=== PATIENT | female | born 1965 | race Two or more races ===

== ENCOUNTER 2022-07-12 06:35 | Day surgery (SDC) | payer MEDICAID ==
[2022-07-12] VITALS (7 sets, daily range): BP systolic 121–133; BP diastolic 6–71
[~2022-07-12] VITALS: Ht 157.5 cm; Wt 69.4 kg
[~2022-07-12 06:35] MED LIST: ASPI-543 PO; FURO20TA3 PO; IBUP800T27 PO; LISI-716 PO; PANT40T PO; ROSU20TA14 PO
[2022-07-12] MEDS ORDERED: IODIXANOL 320MG/ML 100ML BTL IV ONE (07:20)
[2022-07-12] MEDS ORDERED: HEPARIN SODIUM (PORCINE) 5000 UNITS/ML 1ML VIAL ONE (07:55)
[2022-07-12] MEDS ORDERED: fentaNYL CITRATE 100 MCG/2 ML VL ONE (07:55)
[2022-07-12] MEDS ORDERED: VERAPAMIL 2.5MG/ML INJ 2ML VIAL IV ONE (07:55)
[2022-07-12] MEDS ORDERED: ANGIOMAX 250 MG VIAL IV ONE (07:55)
[2022-07-12] MEDS ORDERED: LIDOCAINE 2%HCL (LOCAL ANESTH.) INJ 10ml MDV ONE (07:56)
[2022-07-12] MEDS ORDERED: MIDAZOLAM HCL 2MG/2ML 2ml VIAL (1mg/ml) ONE (07:56)
[2022-07-12] MEDS ORDERED: SODIUM CHL 0.9% 0 ML ONE (07:56)
== END 2022-07-12 10:55 | disposition home or self-care (01) ==
LOC: CATH 06:35
PROVIDERS: ATTEND Internal Medicine Cardiovascular Disease
DX: I25.10 Atherosclerotic heart disease of native coronary artery without angina pectoris (principal); R94.39 Abnormal result of other cardiovascular function study; I10 Essential (primary) hypertension; R73.03 Prediabetes; I45.10 Unspecified right bundle-branch block; Z79.899 Other long term (current) drug therapy; Z20.822 Contact with and (suspected) exposure to COVID-19
CPT/HCPCS: 93458; C1769; C1887; C1894; J1644; J2001; J2250; J3010; Q9967; U0003; 99152

== ENCOUNTER → 2023-06-18 | Outpatient (CLI) | payer OTHER ==
[~2023-06-18] MED LIST changes: +IBUP-1456 PO; -IBUP800T27 PO; -LISI-716 PO; +LISI10TA34 PO
[2023-06-18 09:04] LABS: Basophils # (auto) 0 10 ^3/uL (0-0.2); Basophils % (auto) 0.8 % (0.0-2.0); Eosinophils # (auto) 0.1 10 ^3/uL (0-0.8); Eosinophils % (auto) 1.4 % (0.0-7.0); Hematocrit 42.2 % (36.0-46.0); Hemoglobin 14.4 g/dL (12.2-16.2); Lymphocytes % (auto) 35.5 % (10.0-50.0); Mean Corpuscular Hemoglobin 30.7 pg (28.0-32.0); Mean Corpuscular Hgb Conc. 34.2 g/dL (32.0-36.0); Mean Corpuscular Volume 89.8 fL (80.0-100.0); Monocytes # (auto) 0.4 10 ^3/uL (0-1.3); Monocytes % (auto) 7.5 % (0.0-12.0); Neutrophils # (auto) 3.2 10 ^3/uL (1.6-8.6); Neutrophils % (auto) 54.8 % (37.0-80.0); Nucleated Red Blood Cells % 0.1 %; Red Cell Distribution Width 12.8 % (11.8-14.3); White Blood Cell 5.8 10^3/uL (4.4-10.8)
[2023-06-18 09:13] LABS: Urine Bacteria NONE SEEN /hpf (None Seen); Urine Blood Negative /uL (Negative); Urine Clarity HAZY (Clear); Urine Protein, UAD Negative (Negative); Urine Specific Gravity 1.017 (1.001-1.035); Urine Urobilinogen Normal (Negative); Urine WBC 1 /hpf (0 - 5)
[2023-06-18 09:15] LABS: Urine Color Straw (Yellow)
[2023-06-18 09:26] LABS: Alanine Aminotransferase 43 U/L (7-40); Albumin 4.4 g/dL (3.2-4.8); Alkaline Phosphatase 126 U/L (46-116); Anion Gap 6 (5-15); Aspartate Aminotransferase 21 U/L (13-40); BUN/Creatinine Ratio 15.9 (10.0-20.0); Blood Urea Nitrogen 11 mg/dL (9-23); Calcium 9.6 mg/dL (8.5-10.1); Carbon Dioxide 28 mmol/L (20-30); Chloride 107 mmol/L (98-107); Cholesterol 196 mg/dL (< 200); Glucose 96 mg/dL (74-106); LDL Cholesterol 140 mg/dL (< 100); Sodium 141 mmol/L (136-145); Triglycerides 177 mg/dL (< 150)
[2023-06-18 09:27] LABS: Bilirubin, Total 0.8 mg/dL (0.2-1.0); HDL Cholesterol 50 mg/dL (40-59); Total Protein 7.2 g/dL (5.7-8.2)
[2023-06-18 09:31] LABS: Folate (Folic Acid) 16.7 ng/mL (>5.38)
[2023-06-18 09:57] LABS: Uric Acid 5.8 mg/dL (3.1-7.8)
== END | disposition home or self-care (01) ==
LOC: LAB 08:19
PROVIDERS: ATTEND Internal Medicine
DX: E61.2 Magnesium deficiency (principal); R78.89 Finding of other specified substances, not normally found in blood; R68.89 Other general symptoms and signs; E78.41 Elevated Lipoprotein(a); R94.6 Abnormal results of thyroid function studies; E79.0 Hyperuricemia without signs of inflammatory arthritis and tophaceous disease; E85.9 Amyloidosis, unspecified; R82.991 Hypocitraturia; R82.90 Unspecified abnormal findings in urine; R82.79 Other abnormal findings on microbiological examination of urine; D51.9 Vitamin B12 deficiency anemia, unspecified
CPT/HCPCS: 36415; 80053; 80061; 81001; 82306; 82607; 82746; 83036; 83735; 84443; 84550; 85025; 87086

== ENCOUNTER → 2023-09-19 | Outpatient (CLI) | payer OTHER ==
[2023-09-19 10:11] LABS: Basophils # (auto) 0.1 10 ^3/uL (0-0.2); Eosinophils # (auto) 0.1 10 ^3/uL (0-0.8); Eosinophils % (auto) 1.6 % (0.0-7.0); Hematocrit 43.8 % (36.0-46.0); Lymphocytes # (auto) 2.1 10 ^3/uL (0.4-5.4); Lymphocytes % (auto) 31.7 % (10.0-50.0); Mean Corpuscular Hemoglobin 30.7 pg (28.0-32.0); Mean Corpuscular Hgb Conc. 34.2 g/dL (32.0-36.0); Mean Corpuscular Volume 89.7 fL (80.0-100.0); Monocytes # (auto) 0.4 10 ^3/uL (0-1.3); Monocytes % (auto) 6.6 % (0.0-12.0); Neutrophils # (auto) 3.9 10 ^3/uL (1.6-8.6); Neutrophils % (auto) 59.1 % (37.0-80.0); Red Blood Cells 4.89 10^6/uL (4.0-5.20); Red Cell Distribution Width 13.2 % (11.8-14.3); White Blood Cell 6.6 10^3/uL (4.4-10.8)
[2023-09-19 10:31] LABS: Urine Bacteria FEW /hpf (None Seen); Urine Blood 1+ /uL (Negative); Urine Clarity Clear (Clear); Urine Color Straw (Yellow); Urine Mucus FEW (None Seen); Urine Protein, UAD Negative (Negative); Urine Specific Gravity 1.018 (1.001-1.035); Urine Urobilinogen Normal (Negative); Urine WBC 1 /hpf (0 - 5); Urine pH 6.5 (5.0-8.0)
[2023-09-19 10:47] LABS: Erythrocyte Sedimentation Rate 8 mm/hr (0-20)
[2023-09-19 10:54] LABS: Alanine Aminotransferase 45 U/L (7-40); Albumin 4.6 g/dL (3.2-4.8); Alkaline Phosphatase 144 U/L (46-116); Anion Gap 7 (5-15); Aspartate Aminotransferase 23 U/L (13-40); BUN/Creatinine Ratio 17.2 (10.0-20.0); Blood Urea Nitrogen 10 mg/dL (9-23); Calcium 9.8 mg/dL (8.5-10.1); Carbon Dioxide 28 mmol/L (20-30); Chloride 106 mmol/L (98-107); Cholesterol 200 mg/dL (< 200); Glucose 98 mg/dL (74-106); HDL Cholesterol 49 mg/dL (40-59); LDL Cholesterol 139 mg/dL (< 100); Potassium 3.9 mmol/L (3.5-5.1); Sodium 141 mmol/L (136-145); Triglycerides 163 mg/dL (< 150)
[2023-09-19 10:55] LABS: Folate (Folic Acid) 21.16 ng/mL (>5.38); Total Protein 7.2 g/dL (5.7-8.2)
[2023-09-19 11:31] LABS: Uric Acid 4.2 mg/dL (3.1-7.8)
[2023-09-20 08:06] LABS: Rheumatoid Arthritis Factor <10.0 IU/mL (<14.0)
[2023-09-20 09:06] LABS: Anti-Nuclear Antibody Direct Negative (Negative)
== END | disposition home or self-care (01) ==
LOC: LAB 09:37
PROVIDERS: ATTEND Internal Medicine
DX: E61.2 Magnesium deficiency (principal); E79.0 Hyperuricemia without signs of inflammatory arthritis and tophaceous disease; R82.998 Other abnormal findings in urine; R94.6 Abnormal results of thyroid function studies; E55.9 Vitamin D deficiency, unspecified; D51.9 Vitamin B12 deficiency anemia, unspecified; R82.79 Other abnormal findings on microbiological examination of urine; R78.89 Finding of other specified substances, not normally found in blood; E78.49 Other hyperlipidemia; R68.89 Other general symptoms and signs; R73.09 Other abnormal glucose
CPT/HCPCS: 36415; 80053; 80061; 81001; 82306; 82607; 82746; 83036; 83735; 84443; 84550; 85025; 85652; 86038; 86431; 87086

== ENCOUNTER → 2023-11-24 | Outpatient (CLI) | payer OTHER ==
[2023-11-24 08:56] LABS: Basophils # (auto) 0 10 ^3/uL (0-0.2); Basophils % (auto) 0.6 % (0.0-2.0); Eosinophils # (auto) 0.2 10 ^3/uL (0-0.8); Eosinophils % (auto) 3.1 % (0.0-7.0); Hematocrit 44.1 % (36.0-46.0); Hemoglobin 14.7 g/dL (12.2-16.2); Lymphocytes # (auto) 1.9 10 ^3/uL (0.4-5.4); Lymphocytes % (auto) 34.5 % (10.0-50.0); Mean Corpuscular Hgb Conc. 33.3 g/dL (32.0-36.0); Mean Corpuscular Volume 90.2 fL (80.0-100.0); Monocytes # (auto) 0.5 10 ^3/uL (0-1.3); Monocytes % (auto) 9.2 % (0.0-12.0); Neutrophils # (auto) 2.9 10 ^3/uL (1.6-8.6); Neutrophils % (auto) 52.6 % (37.0-80.0); Red Blood Cells 4.89 10^6/uL (4.0-5.20); Red Cell Distribution Width 12.5 % (11.8-14.3); White Blood Cell 5.6 10^3/uL (4.4-10.8)
[2023-11-24 09:32] LABS: Erythrocyte Sedimentation Rate 10 mm/hr (0-20)
[2023-11-24 10:17] LABS: Alanine Aminotransferase 41 U/L (7-40); Albumin 4.5 g/dL (3.2-4.8); Alkaline Phosphatase 149 U/L (46-116); Anion Gap 9 (5-15); Aspartate Aminotransferase 27 U/L (13-40); BUN/Creatinine Ratio 17.1 (10.0-20.0); Bilirubin, Total 0.8 mg/dL (0.2-1.0); Blood Urea Nitrogen 12 mg/dL (9-23); CRP High Sensitivity 0.41 mg/dL (<1.0); Calcium 9.8 mg/dL (8.5-10.1); Carbon Dioxide 26 mmol/L (20-30); Chloride 106 mmol/L (98-107); Glucose 101 mg/dL (74-106); Potassium 3.9 mmol/L (3.5-5.1); Sodium 141 mmol/L (136-145); Total Protein 7.2 g/dL (5.7-8.2)
== END | disposition home or self-care (01) ==
LOC: LAB 08:33
PROVIDERS: ATTEND Internal Medicine Rheumatology
DX: Z11.1 Encounter for screening for respiratory tuberculosis (principal); M32.10 Systemic lupus erythematosus, organ or system involvement unspecified; L40.50 Arthropathic psoriasis, unspecified
CPT/HCPCS: 36415; 80053; 85025; 85652; 86141

== ENCOUNTER → 2024-01-13 | Outpatient (CLI) | payer OTHER ==
[2024-01-13 09:02] LABS: Urine Bacteria None Seen /hpf (None Seen)
[2024-01-13 09:12] LABS: Urine Blood Negative /uL (Negative); Urine Clarity Clear (Clear); Urine Color Light-Yellow (Yellow); Urine Mucus FEW (None Seen); Urine Protein, UAD Negative (Negative); Urine Specific Gravity 1.018 (1.001-1.035); Urine Urobilinogen Normal (Negative); Urine WBC 1 /hpf (0 - 5); Urine pH 6.5 (5.0-9.0)
[2024-01-13 09:40] LABS: Alanine Aminotransferase 41 U/L (7-40); Albumin 4.4 g/dL (3.2-4.8); Alkaline Phosphatase 146 U/L (46-116); Anion Gap 5 (5-15); Aspartate Aminotransferase 21 U/L (13-40); BUN/Creatinine Ratio 12.7 (10.0-20.0); Blood Urea Nitrogen 9 mg/dL (9-23); Calcium 9.7 mg/dL (8.5-10.1); Carbon Dioxide 28 mmol/L (20-30); Chloride 108 mmol/L (98-107); Glucose 105 mg/dL (74-106); LDL Cholesterol 85 mg/dL (< 100); Magnesium 1.9 mg/dL (1.6-2.6); Potassium 3.8 mmol/L (3.5-5.1); Sodium 141 mmol/L (136-145); Triglycerides 108 mg/dL (< 150)
[2024-01-13 09:41] LABS: Bilirubin, Total 0.8 mg/dL (0.2-1.0); Cholesterol 144 mg/dL (< 200); HDL Cholesterol 46 mg/dL (40-59)
== END | disposition home or self-care (01) ==
LOC: LAB 08:53
PROVIDERS: ATTEND Internal Medicine
DX: E78.2 Mixed hyperlipidemia (principal); E55.9 Vitamin D deficiency, unspecified; M79.7 Fibromyalgia; Z68.28 Body mass index [BMI] 28.0-28.9, adult
CPT/HCPCS: 36415; 80053; 80061; 81001; 82306; 82746; 83036; 83735; 84443; 84550; 87086

== ENCOUNTER → 2024-04-21 | Outpatient (CLI) | payer OTHER ==
[2024-04-21 08:29] LABS: Urine Bacteria None Seen /hpf (None Seen)
[2024-04-21 08:48] LABS: Basophils # (auto) 0.1 10 ^3/uL (0-0.2); Eosinophils # (auto) 0.1 10 ^3/uL (0-0.8); Eosinophils % (auto) 2.4 % (0.0-7.0); Hematocrit 42.4 % (36.0-46.0); Hemoglobin 14.4 g/dL (12.2-16.2); Lymphocytes # (auto) 1.7 10 ^3/uL (0.4-5.4); Lymphocytes % (auto) 31.4 % (10.0-50.0); Mean Corpuscular Hemoglobin 30.2 pg (28.0-32.0); Mean Corpuscular Hgb Conc. 33.9 g/dL (32.0-36.0); Monocytes # (auto) 0.5 10 ^3/uL (0-1.3); Monocytes % (auto) 9.4 % (0.0-12.0); Neutrophils % (auto) 55.8 % (37.0-80.0); Nucleated Red Blood Cells % 0.1 %; Platelet Count (auto) 147 10^3/uL (140-450); Red Blood Cells 4.76 10^6/uL (4.0-5.20); Red Cell Distribution Width 13.3 % (11.8-14.3); White Blood Cell 5.3 10^3/uL (4.4-10.8)
[2024-04-21 08:53] LABS: Urine Blood Negative /uL (Negative); Urine Clarity Clear (Clear); Urine Color Light-Yellow (Yellow); Urine Mucus FEW (None Seen); Urine Protein, UAD Negative (Negative); Urine Specific Gravity 1.027 (1.001-1.035); Urine Urobilinogen Normal (Negative); Urine WBC <1 /hpf (0 - 5); Urine pH 6.5 (5.0-9.0)
[2024-04-21 09:31] LABS: Alanine Aminotransferase 50 U/L (7-40); Alkaline Phosphatase 127 U/L (46-116); Anion Gap 5 (5-15); BUN/Creatinine Ratio 17.7 (10.0-20.0); Blood Urea Nitrogen 14 mg/dL (9-23); Carbon Dioxide 29 mmol/L (20-30); Chloride 107 mmol/L (98-107); Glucose 97 mg/dL (74-106); LDL Cholesterol 73 mg/dL (< 100); Potassium 4.5 mmol/L (3.5-5.1); Sodium 141 mmol/L (136-145); Triglycerides 139 mg/dL (< 150)
[2024-04-21 09:32] LABS: Albumin 4.4 g/dL (3.2-4.8); Aspartate Aminotransferase 22 U/L (13-40); Cholesterol 137 mg/dL (< 200); HDL Cholesterol 44 mg/dL (40-59)
[2024-04-21 10:17] LABS: Folate (Folic Acid) 22.4 ng/mL (>5.38)
== END | disposition home or self-care (01) ==
LOC: LAB 08:19
PROVIDERS: ATTEND Internal Medicine
DX: I10 Essential (primary) hypertension (principal); E78.2 Mixed hyperlipidemia; E55.9 Vitamin D deficiency, unspecified
CPT/HCPCS: 36415; 80053; 80061; 81001; 82306; 82607; 82746; 83036; 83735; 84443; 84550; 85025; 87086

== ENCOUNTER 2024-04-29 16:55 | Inpatient (IN) | payer OTHER ==
[~2024-04-29] VITALS: Ht 157.5 cm; Wt 71.4 kg
[2024-04-29 18:01] LABS: Basophils # (auto) 0 10 ^3/uL (0-0.2); Basophils % (auto) 0.2 % (0.0-2.0); Eosinophils # (auto) 0 10 ^3/uL (0-0.8); Eosinophils % (auto) 0.1 % (0.0-7.0); Hematocrit 43.7 % (36.0-46.0); Hemoglobin 14.8 g/dL (12.2-16.2); Lymphocytes # (auto) 1.4 10 ^3/uL (0.4-5.4); Mean Corpuscular Hemoglobin 30.4 pg (28.0-32.0); Mean Corpuscular Volume 89.4 fL (80.0-100.0); Monocytes # (auto) 0.9 10 ^3/uL (0-1.3); Monocytes % (auto) 5.2 % (0.0-12.0); Neutrophils # (auto) 15.3 10 ^3/uL (1.6-8.6); Neutrophils % (auto) 86.5 % (37.0-80.0); Platelet Count (auto) 141 10^3/uL (140-450); Red Blood Cells 4.88 10^6/uL (4.0-5.20); Red Cell Distribution Width 13.7 % (11.8-14.3); White Blood Cell 17.7 10^3/uL (4.4-10.8)
[2024-04-29 18:14] LABS: Alanine Aminotransferase 50 U/L (7-40); Albumin 4.5 g/dL (3.2-4.8); Alkaline Phosphatase 118 U/L (46-116); Anion Gap 10 (5-15); Aspartate Aminotransferase 28 U/L (13-40); BUN/Creatinine Ratio 22.2 (10.0-20.0); Bilirubin, Total 1.3 mg/dL (0.2-1.0); Blood Urea Nitrogen 18 mg/dL (9-23); Calcium 10.2 mg/dL (8.7-10.4); Carbon Dioxide 24 mmol/L (20-31); Chloride 111 mmol/L (98-107); Glucose 120 mg/dL (74-106); Magnesium 1.9 mg/dL (1.6-2.6); Potassium 3.6 mmol/L (3.5-5.1); Sodium 145 mmol/L (136-145); Total Protein 6.9 g/dL (5.7-8.2)
[2024-04-29 20:07] LABS: Erythrocyte Sedimentation Rate 8 mm/hr (0-20)
[2024-04-29 20:48] LABS: Urine Bacteria None Seen /hpf (None Seen)
[2024-04-29 21:05] VITALS: PULSE 110; RESP 18; O2SAT 98
[2024-04-29] MEDS: methylPREDNISolone SOD SUCC 125 MG/2 ML VL IV ONE (21:22)
[2024-04-29] MEDS: IBUPROFEN 800 MG TAB PO ONE (21:25)
[2024-04-29 21:32] LABS: Urine Amorphous Crystal FEW /hpf (None Seen); Urine Blood Negative /uL (Negative); Urine Clarity Turbid (Clear); Urine Color Yellow (Yellow); Urine Mucus FEW (None Seen); Urine Protein, UAD 1+ (Negative); Urine Urobilinogen Normal (Negative); Urine WBC 5 /hpf (0 - 5); Urine pH 5.5 (5.0-9.0)
[2024-04-29 22:11] LABS: COVID19 ANTIGEN SOFIA FIA NEGATIVE (NEGATIVE); Rapid Influenza A Negative (Negative); Rapid Influenza B Negative (Negative)
[2024-04-29] MEDS ORDERED: MORPHINE SULFATE INJ 2 MG/ml SYRG IV PRN (23:00)
[2024-04-29] MEDS ORDERED: ACETAMINOPHEN 500 MG TAB PO PRN (23:00)
[2024-04-29] MEDS ORDERED: NITROGLYCERIN 0.4 MG SL TAB SL PRN (23:00)
[2024-04-29 23:18] LABS: Amphetamine Screen, Urine Neg (NEGATIVE); Barbiturate Scree,Urine Neg (NEGATIVE); Benzodiazephine Screen, Urine Neg (NEGATIVE); Cannabinoid Screen, Urine Neg (NEGATIVE); Cocaine Screen, Urine Neg (NEGATIVE); Opiate Scree,Urine Neg (NEGATIVE); Phencyclidine Screen, Urine Neg (NEGATIVE)
[2024-04-29 23:22] LABS: INR 1.11 (0.9-1.15); Partial Thromboplastin Time 27.3 SEC (24.5-34.5); Prothrombin Time 11.7 sec (9.3-11.8)
[2024-04-29] MEDS: MORPHINE SULFATE INJ 2 MG/ml SYRG IM ONE (23:43)
[2024-04-29 23:45] VITALS: PULSE 85; RESP 18; O2SAT 94
[2024-04-30] MEDS: LISINOPRIL 20 MG TAB PO ONE (00:15)
[2024-04-30] MEDS: ATORVASTATIN 20 MG TAB PO ONE ×2 (00:18→04:45)
[2024-04-30] MEDS: ASPirin-EC 81 mg tab PO ONE (00:18)
[2024-04-30] MEDS ORDERED: hydrALAZINE HCL 20 MG/ML VL IV PRN (02:45)
[2024-04-30] MEDS: PANTOPRAZOLE 40 MG/10 ML VIAL INJ IV ONE (02:59)
[2024-04-30 03:38] LABS: Anion Gap 7 (5-15); Carbon Dioxide 23 mmol/L (20-31); Chloride 110 mmol/L (98-107); Potassium 3.6 mmol/L (3.5-5.1); Sodium 140 mmol/L (136-145)
[2024-04-30 03:39] LABS: Calcium 10.1 mg/dL (8.7-10.4)
[2024-04-30 03:44] LABS: BUN/Creatinine Ratio 19.4 (10.0-20.0); Blood Urea Nitrogen 14 mg/dL (9-23); Glucose 150 mg/dL (74-106)
[2024-04-30 03:54] LABS: Basophils # (auto) 0 10 ^3/uL (0-0.2); Basophils % (auto) 0.1 % (0.0-2.0); Eosinophils # (auto) 0 10 ^3/uL (0-0.8); Hematocrit 40.3 % (36.0-46.0); Hemoglobin 13.6 g/dL (12.2-16.2); Lymphocytes # (auto) 0.7 10 ^3/uL (0.4-5.4); Lymphocytes % (auto) 5.3 % (10.0-50.0); Mean Corpuscular Hemoglobin 30.1 pg (28.0-32.0); Mean Corpuscular Hgb Conc. 33.7 g/dL (32.0-36.0); Mean Corpuscular Volume 89.2 fL (80.0-100.0); Monocytes # (auto) 0.1 10 ^3/uL (0-1.3); Monocytes % (auto) 1.1 % (0.0-12.0); Neutrophils # (auto) 12.1 10 ^3/uL (1.6-8.6); Neutrophils % (auto) 93.5 % (37.0-80.0); Platelet Count (auto) 133 10^3/uL (140-450); Red Blood Cells 4.52 10^6/uL (4.0-5.20); Red Cell Distribution Width 13.3 % (11.8-14.3)
[2024-04-30 07:45] VITALS: PULSE 90; RESP 16; O2SAT 97
[2024-04-30] MEDS: MORPHINE SULFATE INJ 2 MG/ml SYRG IV PRN (07:49)
[2024-04-30] MEDS ORDERED: VANCOMYCIN PER PHARMACY 0 MG IV SCH (08:15)
[2024-04-30] MEDS: cefTRIAXone 2GM/50ML D5W 50 ML IV SCH (08:54)
[2024-04-30] MEDS: ENOXAPARIN SOD 40 MG/0.4 ML SYRINGE SC SCH (10:00)
[2024-04-30] MEDS: VANCOMYCIN 750mg/150ml 150 ML IV SCH (10:13)
[2024-04-30] MEDS: ASPirin-EC 81 mg tab PO SCH (10:32)
[2024-04-30] MEDS: LISINOPRIL 20 MG TAB PO SCH (10:34)
[2024-04-30] MEDS: DOXYCYCLINE 100MG/250ML 250 ML IV ONE (14:45)
[2024-04-30 15:17] LABS: CRP High Sensitivity 11.16 mg/dL (<1.0)
[2024-04-30] MEDS ORDERED: LISI20TA56 PO (15:37)
[2024-04-30] MEDS ORDERED: ATOR10TA52 PO (15:37)
[2024-04-30] MEDS ORDERED: METO10TA3 PO (15:37)
[2024-04-30] MEDS ORDERED: PROP1TAB51 PO (15:37)
[2024-04-30] MEDS ORDERED: LEFL10TA17 PO (15:37)
[2024-04-30] MEDS ORDERED: ERGO500086 PO (15:37)
[2024-04-30] MEDS ORDERED: GABA-1250 PO (15:37)
[2024-04-30 16:57] VITALS: BP 146/74; PULSE 68; RESP 16; TEMP 97.8; O2SAT 98
[2024-04-30 19:30] VITALS: PULSE 75; RESP 19; O2SAT 96
[2024-04-30 21:00] VITALS: BP 134/61; PULSE 72; RESP 18; TEMP 97.6; O2SAT 97
[2024-04-30] MEDS: VANCOMYCIN 1GM/200ML 200 ML IV SCH (21:23)
[2024-04-30] MEDS ORDERED: ATORVASTATIN 20 MG TAB PO SCH (22:00)
[2024-05-01] VITALS (9 sets, daily range): BP systolic 120–150; BP diastolic 55–73; PULSE 65–76; RESP 18–20; TEMP 97.6–97.9; O2SAT 96–98
[2024-05-01 07:01] LABS: Basophils # (auto) 0 10 ^3/uL (0-0.2); Basophils % (auto) 0.4 % (0.0-2.0); Eosinophils # (auto) 0 10 ^3/uL (0-0.8); Eosinophils % (auto) 0.2 % (0.0-7.0); Hematocrit 39.9 % (36.0-46.0); Hemoglobin 13.5 g/dL (12.2-16.2); Lymphocytes # (auto) 2.6 10 ^3/uL (0.4-5.4); Lymphocytes % (auto) 19.2 % (10.0-50.0); Mean Corpuscular Hemoglobin 30.5 pg (28.0-32.0); Mean Corpuscular Hgb Conc. 33.9 g/dL (32.0-36.0); Mean Corpuscular Volume 90.1 fL (80.0-100.0); Monocytes # (auto) 0.8 10 ^3/uL (0-1.3); Monocytes % (auto) 6.3 % (0.0-12.0); Neutrophils % (auto) 73.9 % (37.0-80.0); Platelet Count (auto) 126 10^3/uL (140-450); Red Blood Cells 4.43 10^6/uL (4.0-5.20); Red Cell Distribution Width 13.3 % (11.8-14.3); White Blood Cell 13.5 10^3/uL (4.4-10.8)
[2024-05-01] MEDS: ACETAMINOPHEN 500 MG TAB PO PRN (09:59)
[2024-05-01] MEDS: PANTOPRAZOLE 40 MG/10 ML VIAL INJ IV SCH (09:59)
[2024-05-01] MEDS: HYDROcodone-ACET 5/325MG TAB PO PRN (13:39)
[2024-05-01] MEDS: diphenhdrAMINE HCL 50 MG/1 ML VL IV ONE (15:01)
[2024-05-01] MEDS ORDERED: ATORVASTATIN 20 MG TAB PO SCH (22:00)
[2024-05-01] MEDS: GABAPENTIN 100 MG CAP PO SCH (22:00)
[2024-05-02] VITALS (8 sets, daily range): BP systolic 141–156; BP diastolic 75–100; PULSE 67–82; RESP 19–20; TEMP 97.6–98.6; O2SAT 96–98
[2024-05-02 06:22] LABS: Basophils # (auto) 0 10 ^3/uL (0-0.2); Basophils % (auto) 0.7 % (0.0-2.0); Eosinophils # (auto) 0.1 10 ^3/uL (0-0.8); Eosinophils % (auto) 1.1 % (0.0-7.0); Hemoglobin 14.5 g/dL (12.2-16.2); Lymphocytes # (auto) 2.4 10 ^3/uL (0.4-5.4); Mean Corpuscular Hemoglobin 30.3 pg (28.0-32.0); Mean Corpuscular Hgb Conc. 33.6 g/dL (32.0-36.0); Mean Corpuscular Volume 90.3 fL (80.0-100.0); Monocytes # (auto) 0.5 10 ^3/uL (0-1.3); Monocytes % (auto) 9.8 % (0.0-12.0); Neutrophils # (auto) 2.5 10 ^3/uL (1.6-8.6); Neutrophils % (auto) 44.4 % (37.0-80.0); Nucleated Red Blood Cells % 0.2 %; Platelet Count (auto) 141 10^3/uL (140-450); Red Blood Cells 4.77 10^6/uL (4.0-5.20); Red Cell Distribution Width 13.5 % (11.8-14.3); White Blood Cell 5.6 10^3/uL (4.4-10.8)
[2024-05-02] MEDS: ATORVASTATIN 20 MG TAB PO SCH (21:35)
[2024-05-03] VITALS (7 sets, daily range): BP systolic 104–169; BP diastolic 60–88; PULSE 66–103; RESP 19–24; TEMP 97.5–98.3; O2SAT 96–99
[2024-05-03 06:34] LABS: Basophils # (auto) 0 10 ^3/uL (0-0.2); Eosinophils # (auto) 0.1 10 ^3/uL (0-0.8); Eosinophils % (auto) 1.9 % (0.0-7.0); Hematocrit 43.8 % (36.0-46.0); Lymphocytes % (auto) 40.6 % (10.0-50.0); Mean Corpuscular Hemoglobin 30.7 pg (28.0-32.0); Mean Corpuscular Hgb Conc. 34.2 g/dL (32.0-36.0); Mean Corpuscular Volume 89.6 fL (80.0-100.0); Monocytes # (auto) 0.5 10 ^3/uL (0-1.3); Monocytes % (auto) 10.4 % (0.0-12.0); Neutrophils # (auto) 2.2 10 ^3/uL (1.6-8.6); Neutrophils % (auto) 46.1 % (37.0-80.0); Platelet Count (auto) 156 10^3/uL (140-450); Red Blood Cells 4.89 10^6/uL (4.0-5.20); Red Cell Distribution Width 13.5 % (11.8-14.3); White Blood Cell 4.8 10^3/uL (4.4-10.8)
[2024-05-03 06:52] LABS: Calcium 9.8 mg/dL (8.7-10.4); Chloride 106 mmol/L (98-107); Potassium 3.6 mmol/L (3.5-5.1); Sodium 140 mmol/L (136-145)
[2024-05-03 06:53] LABS: Anion Gap 10 (5-15); Carbon Dioxide 24 mmol/L (20-31)
[2024-05-03] MEDS: hydrALAZINE HCL 20 MG/ML VL IV PRN (06:57)
[2024-05-03 06:58] LABS: BUN/Creatinine Ratio 15.9 (10.0-20.0); Blood Urea Nitrogen 10 mg/dL (9-23); Glucose 104 mg/dL (74-106)
[2024-05-03 08:41] LABS: Hepatitis B Surface Antigen Negative (Negative)
[2024-05-03 09:02] LABS: Hepatitis C Antibody Negative (Negative)
[2024-05-03] MEDS: METOPROLOL TARTRATE 25 MG TAB PO SCH (14:13)
[2024-05-04 05:27] LABS: Basophils # (auto) 0 10 ^3/uL (0-0.2); Basophils % (auto) 0.8 % (0.0-2.0); Eosinophils # (auto) 0.2 10 ^3/uL (0-0.8); Eosinophils % (auto) 2.7 % (0.0-7.0); Hematocrit 43.6 % (36.0-46.0); Hemoglobin 14.9 g/dL (12.2-16.2); Lymphocytes # (auto) 2.3 10 ^3/uL (0.4-5.4); Lymphocytes % (auto) 40.2 % (10.0-50.0); Mean Corpuscular Hemoglobin 30.9 pg (28.0-32.0); Mean Corpuscular Hgb Conc. 34.2 g/dL (32.0-36.0); Mean Corpuscular Volume 90.4 fL (80.0-100.0); Monocytes # (auto) 0.5 10 ^3/uL (0-1.3); Monocytes % (auto) 9.1 % (0.0-12.0); Neutrophils # (auto) 2.7 10 ^3/uL (1.6-8.6); Neutrophils % (auto) 47.2 % (37.0-80.0); Nucleated Red Blood Cells % 0.2 %; Platelet Count (auto) 170 10^3/uL (140-450); Red Blood Cells 4.83 10^6/uL (4.0-5.20); Red Cell Distribution Width 13.5 % (11.8-14.3); White Blood Cell 5.6 10^3/uL (4.4-10.8)
[2024-05-04 05:38] LABS: Alanine Aminotransferase 55 U/L (7-40); Albumin 4.1 g/dL (3.2-4.8); Alkaline Phosphatase 103 U/L (46-116); Anion Gap 7 (5-15); Aspartate Aminotransferase 22 U/L (13-40); Bilirubin, Total 0.7 mg/dL (0.2-1.0); Blood Urea Nitrogen 11 mg/dL (9-23); Calcium 9.9 mg/dL (8.7-10.4); Carbon Dioxide 23 mmol/L (20-31); Chloride 109 mmol/L (98-107); Glucose 100 mg/dL (74-106); Potassium 3.7 mmol/L (3.5-5.1); Sodium 139 mmol/L (136-145); Total Protein 6.6 g/dL (5.7-8.2)
[2024-05-04 08:00] VITALS: PULSE 66
[2024-05-04 09:00] VITALS: BP 129/85; PULSE 72; RESP 18; TEMP 97.6; O2SAT 98
[2024-05-04 13:00] VITALS: BP 161/83; PULSE 78; RESP 18; O2SAT 95
[2024-05-04 15:42] VITALS: BP 161/83; PULSE 78; TEMP 36.4
[2024-05-04] MEDS ORDERED: TRAM-626 PO (15:53)
== END 2024-05-04 16:40 | disposition home or self-care (01) | DRG 552 ==
LOC: ER 16:55 → TELE 22:53 → TELE-EAST 04-30 16:52
PROVIDERS: ADMIT Internal Medicine; ATTEND Internal Medicine
DX: M48.02 Spinal stenosis, cervical region (principal); I47.10 Supraventricular tachycardia, unspecified; M48.062 Spinal stenosis, lumbar region with neurogenic claudication; E66.01 Morbid (severe) obesity due to excess calories; E78.5 Hyperlipidemia, unspecified; I11.9 Hypertensive heart disease without heart failure; Z20.822 Contact with and (suspected) exposure to COVID-19; I25.10 Atherosclerotic heart disease of native coronary artery without angina pectoris; I16.0 Hypertensive urgency; K21.9 Gastro-esophageal reflux disease without esophagitis; M43.17 Spondylolisthesis, lumbosacral region; G43.909 Migraine, unspecified, not intractable, without status migrainosus; M47.819 Spondylosis without myelopathy or radiculopathy, site unspecified; L40.50 Arthropathic psoriasis, unspecified; M06.8A Other specified rheumatoid arthritis, other specified site; K76.0 Fatty (change of) liver, not elsewhere classified; Z78.9 Other specified health status; Z86.73 Personal history of transient ischemic attack (TIA), and cerebral infarction without residual deficits; Z83.3 Family history of diabetes mellitus; Z80.0 Family history of malignant neoplasm of digestive organs; Z79.82 Long term (current) use of aspirin; Z79.899 Other long term (current) drug therapy; Z90.49 Acquired absence of other specified parts of digestive tract; Z68.28 Body mass index [BMI] 28.0-28.9, adult
CPT/HCPCS: 36415; 70450; 70551; 71045; 71250; 72141; 72148; 80048; 80053; 80202; 80307; 81001; 82306; 82550; 82565; 83605; 83735; 83880; 84443; 84484; 85025; 85610; 85652; 85730; 86038; 86141; 86803; 87040; 87081; 87340; 87426; 87804; 93005; 93306; 96374; 99291; G0378; J2470

== ENCOUNTER 2024-06-30 16:21 | Emergency (ER) | payer OTHER ==
[~2024-06-30] VITALS: Ht 157.5 cm; Wt 70.4 kg
[~2024-06-30 16:21] MED LIST changes: +ATOR10TA52 PO; +ERGO500086 PO; -FURO20TA3 PO; +GABA-1250 PO; -IBUP-1456 PO; +LEFL10TA17 PO; -LISI10TA34 PO; +LISI20TA56 PO; +METO10TA3 PO; +PROP1TAB51 PO; -ROSU20TA14 PO; +TRAM-626 PO
[2024-06-30] MEDS: HYDROcodone-ACET 5/325MG TAB PO ONE (18:48)
[2024-06-30] MEDS: DexAMETHasone SOD PHOS 10MG/1ML VIAL INJ IM ONE (18:49)
[2024-06-30] MEDS: KETOROLAC TROMETH 60MG/2ML VIAL IM ONE (18:49)
--- NOTE | 2024-06-30 19:46 | ED.PDOC ---
Back pain HPI HPI Comments THIS IS A 58-YEAR-OLD FEMALE PRESENTS TO THE ED ACUTE ON CHRONIC LOWER BACK PAIN. 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 SHE NOTES WAS SCHEDULED FOR PAIN MANAGEMENT FOR INJECTIONS WITH POSSIBLE SURGICAL INTERVENTION IF NO IMPROVEMENT X3 INJECTIONS. HOWEVER REFERRAL HAS NOT BEEN SENT OVER. SHE STATES THIS PAIN HAS BEEN GOING ON FOR 2 MONTHS. REPORTS OVER THE PAST 3 DAYS PAIN HAS BECOME SEVERE WITH INABILITY TO AMBULATE, SLEEP OR PERFORM HER ADLS. PATIENT STATES BILATERAL LOWER BACK PAIN 10/10 ON PAIN SCALE SHARP SHOOTING PAIN INTO BILATERAL GLUTES DOWN POSTERIOR THIGHS AND CALVES TO THE HEELS OF HER BILATERAL FEET. SHE REPORTS INTERMITTENT NUMBNESS AND WEAKNESS IN HER LOWER LEGS. SHE STATES HAS BEEN TAKING TRAMADOL IBUPROFEN WITH LITTLE TO NO RELIEF. SHE DENIES LOSS OF BOWEL BLADDER CONTROL, NEW INJURY, OR SADDLE ANESTHESIA. Chief Complaint: Back Pain Time Seen by MD: 18:03 Reviewed Notes: Nurses Notes, Medications, Allergies Allergies: Uncoded Allergies: NONE (Allergy, Unknown, 07/10/22) Home Meds Active Scripts Tramadol HCl (Tramadol HCl) 50 Mg Tab, 50 MG PO Q8HPRN PRN for 10 Days, #30 TAB Prov:DONALDO FARRELL MD 05/04/24 Reported Medications Leflunomide (Leflunomide) 10 Mg Tab, 10 MG PO DAILY, TAB 04/30/24 Gabapentin (Gabapentin) 300 Mg Cap, 300 MG PO DAILY, MG 04/30/24 Metoclopramide Hcl (Metoclopramide Hcl) 10 Mg Tab, 10 MG PO BID, MG 04/30/24 Ergocalciferol (Vitamin D (Ergocalciferol) 50,000 Unit Cap, 74130 UNIT PO QWEEKLY, CAP 04/30/24 Propranolol HCl (Propranolol Hydrochloride) 10 Mg Tab, 10 MG PO TID, TAB 04/30/24 Atorvastatin Calcium (ATORVASTATIN CALCIUM) 10 Mg Tab, 10 MG PO DAILY, TAB 04/30/24 Lisinopril (Lisinopril) 20 Mg Tab, 20 MG PO DAILY, TAB 04/30/24 Aspirin (Aspir-Low) 81 Mg Tab, 81 MG PO DAILY for PREVENT BLOOD CLOTS, MG 07/10/22 Pantoprazole Sodium Sesquihydr (Pantoprazole Sodium) 40 Mg Tab, 40 MG PO DAILY for GERD, TAB 07/10/22 Information Source: Patient Mode of Arrival: Ambulatory Past Medical History PAST MEDICAL HISTORY: Arthritis, CVA, HTN Surgical History: Cholecystectomy, Tubal Ligation BAKER BISCUIT History: No Pertinent BAKER BISCUIT History Family History Family History: Family hx of DM, Family hx of Cancer, Family hx of liver acsota Social History Smoker: Non-Smoker Alcohol: Denies ETOH Use Drugs: Denies Drug Use Lives In: Home Constitutional: denies: chills, diaphoresis, fatigue, fever, malaise, sweats, weakness, others EENTM: denies: blurred vision, double vision, ear bleeding, ear discharge, ear drainage, ear pain, ear ringing, eye pain, eye redness, hearing loss, mouth pain, mouth swelling, nasal discharge, nose bleeding, nose congestion, nose pain, photophobia, tearing, throat pain, throat swelling, voice changes, others Respiratory: denies: cough, hemoptysis, orthopnea, SOB at rest, shortness of breath, SOB with excertion, stridor, wheezing, others Cardiovascular: denies: chest pain, dizzy spells, diaphoresis, Dyspnea on exertion, edema, irregular heart beat, left arm pain, lightheadedness, palpitations, PND, syncope, others Gastrointestinal: denies: abdomen distended, abdominal pain, blood streaked bowels, constipated, diarrhea, dysphagia, difficulty swallowing, hematemesis, melena, nausea, poor appetite, poor fluid intake, rectal bleeding, rectal pain, vomiting, others Genitourinary: denies: abnormal vagina bleeding, burning, dyspareunia, dysuria, flank pain, frequency, hematuria, incontinence, pain, , vagina discharge, urgency, others Neurological: denies: dizziness, fainting, headache, left sided numbness, left sided weakness, numbness, paresthesia, pre-existing deficit, right sided numbness, right sided weakness, seizure, speech problems, tingling, tremors, weakness, others Musculoskeletal: reports: back pain; denies: gout, joint pain, joint swelling, muscle pain, muscle stiffness, neck pain, others Integumetry: denies: bruises, change in color, change in hair/nails, dryness, laceration, lesions, lumps, rash, wounds, others Allergic/Immunocompromised: denies: Difficulty Healing, Frequent Infections, Hives, Itching, others Hematologic/Lymphatic: denies: anemia, blood clots, easy bleeding, easy bruising, swollen glands, others Endocrine: denies: excessive hunger, excessive sweating, excessive thirst, excessive urination, flushing, intolerance to cold, intolerance to heat, unexplained weight gain, unexplained weight loss, others Psychiatric: denies: anxiety, bipolar disorder, depression, hopeless, panic disorder, schizophrenia, sleepless, suicidal, others Physical Exam General Appearance: No Apparent Distress, Normal HEENT: Normal ENT Inspection, Pharynx Normal Neck: Full Range of Motion, Non-Tender Respiratory: Lungs Clear, No Respiratory Distress, Normal Breath Sounds Cardiovascular: No Edema, No JVD, No Murmur, No Gallop, Normal Peripheral Pulses, Regular Rate/Rhythm Breast Exam: Deferred Gastrointestinal: No Organomegaly, Non Tender, No Pulsatile Mass, Normal Bowel Sounds, Soft Genitalia: Deferred Pelvic: Deferred Rectal: Deferred Extremities: Normal capillary refill, Normal inspection, Normal range of motion, Non-tender, No pedal edema Musculoskeletal : Location: Bilateral Extremity Location: Back (MODERATE TO SEVERE PAIN ON PALPITATION L3 TO L5 LUMBAR SPINE WITHOUT CREPITUS, OR STEP-OFFS. MODERATE MUSCLE SPASMS L1 THROUGH L5 BILATERAL PARASPINAL MUSCLES WITH MODERATE TENDERNESS. POSITIVE STRAIGHT LEG RAISE BILATERAL. STRENGTH SENSORY MOTION INTACT BILATERAL LOWER EXTREMITIES POSITIVE PEDAL PULSES. NO NOTED FOOTDROP BILATERAL) Apperance: Normal Neurologic: Alert, tea and spice supervisor II-XII nml as Tested, No Motor Deficits, Normal Affect, Normal Mood, No Sensory Deficits Cerebellar Function: Normal Reflexes: Normal Skin: Dry, Normal Color, Warm Lymphatic: No Adenopathy Was a procedure done? Was a procedure done?: No Back Pain Differential Dx Differential Diagnosis: Fracture, Musculoskeletal Pain X-Ray, Labs, Meds, VS Vital Signs Date Time Temp Pulse Resp B/P (MAP) Pulse Ox O2 Delivery O2 Flow Rate FiO2 06/30/24 20:51 100 20 150/88 06/30/24 20:39 80 18 146/82 06/30/24 19:50 110 22 152/90 06/30/24 18:39 105 18 98 Room Air 06/30/24 18:39 98.6 105 18 145/87 (106) 98 98.6 06/30/24 16:58 98.6 105 18 145/87 (106) 98 Current Medications Medications (Trade) Dose Ordered Sig/Jen Route Start Time Stop Time Status Last Admin Ketorolac Tromethamine (Toradol Injection) 60 mg ONCE ONCE IM 06/30/24 18:45 06/30/24 18:46 DC 06/30/24 18:49 Dexamethasone Sodium Phosphate (Decadron Injection) 10 mg ONCE ONCE IM 06/30/24 18:45 06/30/24 18:46 DC 06/30/24 18:49 Acetaminophen/ Hydrocodone Bitart ([place] 5/325MG Tab) 1 tab ONCE ONCE PO 06/30/24 18:45 06/30/24 18:46 DC 06/30/24 18:48 Morphine Sulfate 1 mg ONCE ONCE IV 06/30/24 19:45 06/30/24 19:46 DC 06/30/24 19:50 Sodium Chloride 1,000 ml @ 100 mls/hr Q10H ONCE IV 06/30/24 19:45 07/01/24 05:44 06/30/24 19:50 Hydromorphone HCl (Dilaudid Injection) 0.5 mg ONCE ONCE IV 06/30/24 20:45 06/30/24 20:46 DC 06/30/24 20:51 X-Ray, Labs, Meds, VS Comment PATIENT WAS GIVEN DECADRON 10 MG IM, TORADOL 60 MG IM AND NORCO 5 MG P.O.. SHE REPORTS NO RELIEF IN HER SYMPTOMS. WE WILL START AN IV AND DO IV PAIN MEDS, ORDER CT OF LUMBAR SPINE. Patient reported no relief with 1 mg of morphine ordered 0.[address] result or lumbar spine shows L4-L5 L5-S1 moderate to severe bilateral foraminal stenosis. Patient continues with moderate to severe pain inability to walk without severe pain. We will admit for intractable lumbar radiculopathy. Based on CT results recommendation is to consider an MRI of the lumbar spine in the morning. Time of 1ST Reevaluation: 20:57 Reevaluation 1ST: Unchanged Patient Education/Counseling: Diagnosis, Treatment, Prognosis, Need For Follow Up Family Education/Counseling: Diagnosis, Treatment, Prognosis, Need For Follow Up Departure 1 Departure Time of Disposition: 20:58 Impression: Primary Impression: Intractable neuropathic pain of lumbosacral origin Additional Impressions: Lumbar radiculopathy Neuroforaminal stenosis of lumbar spine Disposition: ADMITTED INPATIENT Condition: Stable Critical Care Note Critical Care Time?: No Stability Stability form required: EVERARDO Swift AUDIO VIDEO TECHNICIAN Jun 30, 2024 19:46
[2024-06-30] MEDS: SODIUM CHLORIDE 0.9% 1,000 ML IV ONE (19:50)
[2024-06-30] MEDS: MORPHINE SULFATE INJ 2 MG/ml SYRG IV ONE (19:50)
--- NOTE | 2024-06-30 20:40 | DVH ---
CT OF THE LUMBAR SPINE WITHOUT CONTRAST HISTORY: severe pain bilat radiculopathy COMPARISON: MRI LUMBAR SPINE WO CONTRAST on DOS: 05/03/24 TECHNIQUE: Thin section helical axial scans of the lumbar spine obtained. Sagittal and coronal reform atted images were performed. One or more of the following radiation dose reduction techniques were us ed for this examination: automated exposure control, adjustment of the mA and/or kV according to farzaneh ent size, use of iterative reconstruction technique. FINDINGS: No grossly displaced fractures or subluxations identified. Chronic appearing minimal retrolisthesis o f L5 on S1. Disc space narrowing and posterior disc bulging also again noted at L4-L5 and L5-S1. This causes vary ing degrees of bilateral neural foraminal stenosis and is better demonstrated on the recent MRI. Mild to moderate posterior facet arthropathy also noted at these levels. The sacroiliac joints appear symmetric. Gallbladder is surgically absent. No free air or fluid identified within the imaged abdomen and pelvi s. IMPRESSION: No displaced fractures or subluxations identified. Degenerative changes, as above, which are better demonstrated on the recent prior lumbar spine MRI. If clinically warranted, repeat MRI may be considered to re-evaluate.
[2024-06-30] MEDS: HYDROmorphone HCL 2 MG/ML VL/or syr IV ONE (20:51)
[2024-06-30] MEDS ORDERED: HYDROcodone-ACET 5/325MG TAB PO PRN (22:00)
[2024-06-30] MEDS ORDERED: ACETAMINOPHEN 325 MG TAB PO PRN (22:00)
[2024-06-30] MEDS ORDERED: ONDANSETRON HCL 4 MG/2 ML VIAL IV PRN (22:00)
[2024-06-30] MEDS: CYCLOBENZAPRINE HCL 10 MG TAB PO ONE (22:51)
[2024-06-30] MEDS: ATORVASTATIN 20 MG TAB PO SCH (22:52)
[2024-06-30] MEDS: MORPHINE SULFATE INJ 2 MG/ml SYRG IV PRN (22:55)
[2024-07-01 00:24] VITALS: PULSE 74; RESP 12; O2SAT 97
[2024-07-01] MEDS: hydrALAZINE HCL 20 MG/ML VL ONE (00:54)
[2024-07-01 00:58] VITALS: BP 131/72; PULSE 79; RESP 11; TEMP 98.3; O2SAT 97
[2024-07-01] MEDS: hydrALAZINE HCL 20 MG/ML VL IV ONE (01:08)
[2024-07-01] MEDS ORDERED: PANTOPRAZOLE 40 MG TAB PO SCH (06:00)
[2024-07-01] MEDS ORDERED: LISINOPRIL 20 MG TAB PO SCH (10:00)
== END 2024-06-30 22:20 ==
LOC: ER 16:21 → OVERFLOW 21:59 → UNDOADMIN 21:59 → UNDODISIN 22:20
DX: M48.061 Spinal stenosis, lumbar region without neurogenic claudication (principal); M54.16 Radiculopathy, lumbar region; I10 Essential (primary) hypertension; M54.50 Low back pain, unspecified; M19.90 Unspecified osteoarthritis, unspecified site; Z86.73 Personal history of transient ischemic attack (TIA), and cerebral infarction without residual deficits; Z79.82 Long term (current) use of aspirin; Z79.899 Other long term (current) drug therapy; Z90.49 Acquired absence of other specified parts of digestive tract
CPT/HCPCS: 72131; 96361; 96372; 96374; 96375; 96376; 99285; J0360; J1100; J1171; J1885; J2270; G0378